=== PATIENT | female | born 1940 | race Native Hawaiian/Other Pacific Islander ===

== ENCOUNTER 2017-10-07 06:30 | Emergency (ER) | payer OTHER ==
[~2017-10-07] VITALS: Ht 167.6 cm; Wt 66.7 kg
[~2017-10-07 06:30] MED LIST: ALPR0.2566 PO; ASPIRIN ADULT L81 MG OR; DILTCAP11 PO; DIOVAN320 MG PO; LEVO0.0723 PO; LIPITOR10 MG PO; LIPITOR20 MG PO; UNITH DIRECT88 MCG PO; XARELTO15 MG PO
[2017-10-07 06:38] VITALS: TEMP 97.6
[2017-10-07] MEDS ORDERED: VALSARTAN320 MG PO (06:53)
[2017-10-07] MEDS ORDERED: CLONIDINE0.2 MG/24 TD (06:54)
[2017-10-07] MEDS ORDERED: CADUET10 MG/10 M OR (06:54)
[2017-10-07] MEDS ORDERED: BINOSTO70 MG OR (06:55)
[2017-10-07] MEDS ORDERED: ELIQUIS5 MG OR (06:55)
[2017-10-07 07:40] LABS: PLATELET COUNT 270 K/uL (152-353)
[2017-10-07 07:48] LABS: POTASSIUM 3.9 mmol/L (3.6-5.2); SODIUM 140 mmol/L (136-145)
[2017-10-07 11:15] VITALS: BP 166/51
== END 2017-10-07 11:15 | disposition home or self-care (01) ==
LOC: ED 06:30
DX: R42 Dizziness and giddiness (principal); I25.10 Atherosclerotic heart disease of native coronary artery without angina pectoris; I48.91 Unspecified atrial fibrillation; R00.1 Bradycardia, unspecified
CPT/HCPCS: 36415; 80053; 82550; 84484; 85027; 85730; 93005; 96374; 99284; J2405